=== PATIENT | male | born 1970 | race Two or more races ===

== ENCOUNTER 2016-11-21 18:44 | Emergency (ER) | payer SELFPAY ==
[~2016-11-21] VITALS: Ht 177.8 cm; Wt 90.7 kg
[2016-11-21 19:58] LABS: Basophils # (auto) 0 uL; Basophils % (auto) 0.3 % (0.0-2.0); Eosinophils # (auto) 0.1 uL; Eosinophils % (auto) 0.6 % (0.0-7.0); Hematocrit 45.6 % (41.0-53.0); Hemoglobin 15.2 g/dL (13.5-17.5); Lymphocytes # (auto) 1.2 uL; Lymphocytes % (auto) 11.6 % (10.0-50.0); Mean Corpuscular Hemoglobin 30.5 pg (28.0-32.0); Mean Corpuscular Hgb Conc. 33.3 g/dL (32.0-36.0); Mean Corpuscular Volume 91.5 fL (80.0-100.0); Mean Platelet Volume 8.7 fL (7.4-10.4); Monocytes # (auto) 0.6 uL; Monocytes % (auto) 6.1 % (0.0-12.0); Neutrophils # (auto) 8.1 uL; Neutrophils % (auto) 81.4 % (37.0-80.0); Platelet Count (auto) 352 10^3/uL (140-450); Red Cell Distribution Width 13.3 % (11.6-16.0); White Blood Cell 9.9 10^3/uL (4.4-10.8)
[2016-11-21 20:13] LABS: Albumin 3.5 g/dL (3.4-5.0); Alkaline Phosphatase 293 U/L (45-117); Anion Gap 12 (5-15); Aspartate Aminotransferase 82 U/L (15-37); BUN/Creatinine Ratio 14.4; Bilirubin, Total 3.9 mg/dL (0.2-1.0); Blood Urea Nitrogen 16 mg/dL (7-18); Calcium 9.4 mg/dL (8.5-10.1); Carbon Dioxide 23 mmol/L (21-32); Chloride 106 mmol/L (98-107); GFR African American 91 mL/min; GFR Non-African American 75 mL/min; Glucose 201 mg/dL (74-106); Magnesium 2.4 mg/dL (1.6-2.6); Potassium 3.5 mmol/L (3.5-5.1); Sodium 141 mmol/L (136-145); Total Protein 7.7 g/dL (6.4-8.2)
[2016-11-21] MEDS ORDERED: HYDROmorphone HCL 2 MG/ML VL IV ONE (20:30)
[2016-11-21] MEDS ORDERED: ONDANSETRON HCL 4 MG/2 ML VIAL IV ONE (20:30)
[2016-11-22] MEDS ORDERED: HYDROmorphone HCL 2 MG/ML VL IV ONE (00:45)
[2016-11-22 00:59] LABS: Urine Bilirubin 1+ (Negative); Urine Blood Negative /uL (Negative); Urine Color Yellow (Yellow); Urine Glucose Normal (Normal); Urine Ketone Negative (Negative); Urine Nitrite Negative (Negative); Urine RBC 1 /hpf (0 - 3); Urine pH 6.5 (5.0-8.0)
[2016-11-22 07:06] VITALS: BP 129/77
== END 2016-11-22 07:54 | disposition short-term general hospital (02) ==
LOC: ER 18:48
DX: K80.21 Calculus of gallbladder without cholecystitis with obstruction (principal); K85.90 Acute pancreatitis without necrosis or infection, unspecified; F17.210 Nicotine dependence, cigarettes, uncomplicated
CPT/HCPCS: 36415; 74176; 76705; 80053; 81001; 82248; 83690; 83735; 84484; 85025; 93005; 96374; 96375; 96376; 99285; J1170; J2405; J7030

== ENCOUNTER 2016-12-12 15:41 | Emergency (ER) | payer MEDICAID ==
[~2016-12-12] VITALS: Ht 177.8 cm; Wt 90.7 kg
[2016-12-12 16:33] LABS: Basophils # (auto) 0 uL; Basophils % (auto) 0.4 % (0.0-2.0); Eosinophils # (auto) 0.1 uL; Eosinophils % (auto) 1.7 % (0.0-7.0); Hematocrit 42.4 % (41.0-53.0); Hemoglobin 14.4 g/dL (13.5-17.5); Lymphocytes # (auto) 1.6 uL; Lymphocytes % (auto) 20.9 % (10.0-50.0); Mean Corpuscular Hemoglobin 30.5 pg (28.0-32.0); Mean Corpuscular Volume 89.8 fL (80.0-100.0); Mean Platelet Volume 8.8 fL (7.4-10.4); Monocytes % (auto) 12.6 % (0.0-12.0); Neutrophils # (auto) 4.9 uL; Neutrophils % (auto) 64.4 % (37.0-80.0); Platelet Count (auto) 261 10^3/uL (140-450); Red Cell Distribution Width 12.9 % (11.6-16.0); White Blood Cell 7.6 10^3/uL (4.4-10.8)
[2016-12-12 16:45] LABS: Albumin 3.9 g/dL (3.4-5.0); BUN/Creatinine Ratio 12.7; Calcium 8.2 mg/dL (8.5-10.1); Potassium 3.7 mmol/L (3.5-5.1)
[2016-12-12 16:48] LABS: Bilirubin, Total 1.1 mg/dL (0.2-1.0); Total Protein 7.7 g/dL (6.4-8.2)
[2016-12-12 16:54] LABS: Urine Bilirubin Negative (Negative); Urine Blood TRACE /uL (Negative); Urine Color Yellow (Yellow); Urine Glucose Normal (Normal); Urine Ketone Negative (Negative); Urine Nitrite Negative (Negative); Urine RBC 2 /hpf (0 - 3); Urine pH 5.5 (5.0-8.0)
[2016-12-12 17:47] VITALS: BP 131/90
[2016-12-12] MEDS ORDERED: IOHEXOL 350 MG/ML 100ML IJ ONE (18:43)
[2016-12-12] MEDS ORDERED: HYDROcodone-ACET 5/325MG TAB PO ONE (19:45)
== END 2016-12-12 20:23 | disposition home or self-care (01) ==
LOC: ER 15:41
DX: J18.9 Pneumonia, unspecified organism (principal); G89.18 Other acute postprocedural pain; F17.210 Nicotine dependence, cigarettes, uncomplicated; F12.10 Cannabis abuse, uncomplicated; F10.10 Alcohol abuse, uncomplicated; Z90.49 Acquired absence of other specified parts of digestive tract
CPT/HCPCS: 36415; 71260; 74177; 80053; 81001; 84484; 85025; 93005; 99285; Q9967